=== PATIENT | female | born 1960 | race African-American/Black ===

== ENCOUNTER 2021-06-06 08:43 | Emergency (ER) | payer MEDICAID ==
[~2021-06-06] VITALS: Ht 160 cm; Wt 65.8 kg
--- NOTE | 2021-06-06 08:50 | NUR ---
Patient to ER bed hallway to gown for evaluation. Side rails up.
--- NOTE | 2021-06-06 08:55 | NUR ---
Pt walked in to ER with c/o bilat leg pain 05/13 x1 month, states "I need an x-ray to see if I have arthritis. I need blood work to treat my Hep C and I pee every 30 min" V/S stable, no acute distress noted.
[2021-06-06 08:56] VITALS: BP_SYST 137
--- NOTE | 2021-06-06 09:05 | NUR ---
ER Dr. Fernandez at bedside examining patient.
[2021-06-06] MEDS ORDERED: IBUPROFEN 600 MG TABLET PO ONE (09:15)
[2021-06-06 10:20] LABS: ALBUMIN 3.7 g/dL (3.4-4.8); BILIRUBIN,DIRECT 0.1 mg/dL (0.0-0.3); TOTAL BILIRUBIN 0.3 mg/dL (0.0-1.0)
[2021-06-06] MEDS ORDERED: IBUP-1969 PO (10:44)
--- NOTE | 2021-06-06 10:50 | NUR ---
Patient given written and verbal discharge instructions and verbalizes understanding. ER MD discussed with patient the results and treatment provided. Patient in stable condition. ID arm band removed. Rx of Motrin given. Patient educated on pain management and to follow up with PMD. Pain Scale 0. Opportunity for questions provided and answered. Medication side effect fact sheet provided.
[2021-06-06 10:57] VITALS: BP_SYST 137
== END 2021-06-06 10:50 | disposition home or self-care (01) ==
LOC: SED 08:43
DX: M54.31 Sciatica, right side (principal); M54.32 Sciatica, left side; F31.9 Bipolar disorder, unspecified; F25.9 Schizoaffective disorder, unspecified; Z79.899 Other long term (current) drug therapy
CPT/HCPCS: 36415; 72100-TC; 80076; 81002; 99284